=== PATIENT | male | born 1980 | race Caucasian/White ===

== ENCOUNTER 2017-03-09 14:32 | Emergency (ER) | payer OTHER ==
[2017-03-09 14:40] VITALS: BP 121/91; BMI 25.0
[2017-03-09] MEDS ORDERED: ROCEPHIN VIAL 1 GM IM ONE (15:05)
[2017-03-09] MEDS ORDERED: TORADOL 60 MG VIAL IM ONE (15:05)
[2017-03-09] MEDS ORDERED: BACTRIM DS TAB PO ONE ×2 (15:06→15:08)
[2017-03-09] MEDS ORDERED: TORADOL 60 MG VIAL ONE (15:08)
[2017-03-09] MEDS ORDERED: ROCEPHIN VIAL 1 GM ONE (15:08)
--- NOTE | 2017-03-09 15:09 | DR.GENAD ---
HPI - PCP Primary Care Physician: NFD - Complaint/Symptoms Chief Complaint Doctors Comments: Patient complains of an infection in his right arm for the past seven days getting worst. States he has been taking Amoxicillin for 4-5 days without any improvement. States he was here five months ago and received a tetanus shot at that time. He denies fever, chills, nausea or vomiting. 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 states the pain is 5 of 10. He denies chills or fever. Chief Complaint:: PT C/O INFECTED PLACE OF RT FOREARM. PT STATES HE IS BLIND AND HE DOESN';T KNOW IF SOMETHING STUCK IN HIS ARM OR IF HE WAS BITTEN BY SOMETHING. PT STATES IT HAS BEEN THERE A WEEK AND STARTED A LITTLE BUMP THAT HE COULD FEEL. THROUGHOUT THE PAST FEW DAYS PT STATES THE SWELLING HAS GOTTEN WORSE AND HE NOTICED FEVER ON THE SPOT - Nurses notes reviewed Nurses Notes Review: Yes - Source History Provided: Patient - Mode of Arrival Mode of Arrival: Ambulatory - Timing Onset of Chief Complaint: 03/02/17 Came on: Gradually - Duration Duration: Constant How lon Duration: Weeks - Location Location: right forearm with 3 cm nodule - Severity Severity: Moderate - Modifying Factors Worsens:: nothing Improves:: nothing PMH - PMH Past Medical History: Yes Past Medical History: Anxiety, Depression Past Medical History Comment: USHER SYNDROME Past Surgical History: No - Family History History of Family Medical Conditions: No - Social History Does patient currently use any type of tobacco product: Yes Have you used tobacco products in the last 12 months: Yes Type of Tobacco Use: Cigarettes Does any household member use tobacco: Yes Alcohol Use: None Do you use any recreational Drugs:: No Lives With: Alone Lives Where: Home - infectious screening In the last 2 months have you had wt loss of >10#?: NO Have you had fever, night sweats or hemotysis?: No Have you traveled outside the country in the last 6 months?: No Isolation: Standard ROS - Review of Systems Constitutional: No Symptoms Reported, See HPI, Fever, Weakness Eyes: No Symptoms Reported. negative: See HPI, Eye Pain, Blurred Vision, Tearing, Discharge, Photophobia, Diplopia, Other ENTM: No Symptoms Reported Respiratoy: No Symptoms Reported Cardiovascular: No Symptoms Reported Gastrointestinal/Abdominal: No Symptoms Reported Genitourinary: No Symptoms Reported Neurological: No Symptoms Reported Musculoskeletal: No Symptoms Reported, Right (3-4 erythemaatous firm lesion;no discharge), Arm Integumentary: No Symptoms Reported, Lesions. negative: See HPI, Change in Color, Change in Hair/Nails, Dryness, Lumps, Rash, Itching, Wound, Bruises, Juandice, Other Hematologic/Lymphatic: No Symptoms Reported. negative: See HPI, Anemia, Blood Clots, Easy Bleeding, Easy Bruising, Swollen Glands, Lymphadenopathy, Other Endocrine: No Symptoms Reported Psychiatric: No Symptoms Reported, See HPI. negative: Anxiety, Depression, Hallucinations, Excessive crying, Suicidal, Other PE - Vital Signs Vitals: Temperature 98.3 F Pulse Rate 92 Respiratory Rate 20 Blood Pressure 121/91 O2 Sat by Pulse Oximetry 100 - General Limitations: No Limitations General Appearance: Alert, In Distress (moderate) - Head Head Exam: Normal Inspection, Atraumatic, Normocephalic - Eyes Eye exam: Normal Appearance, PERRL, EOMI. negative: Scleral Icterus, Conjunctival Injection, Nystagmus, Miosis, Mydrasis, Periorbital Swelling, Periorbital Tenderness, Other - ENT ENT Exam: Normal Exam, Normal Oropharynx, Normal External Ear Exam, Mucous Membranes Moist, TM's Normal Bilaterally External Ear Exam: Normal External Inspection TM/Canal Exam: Bilateral Normal Nose Exam: Normal Nose Exam Mouth Exam: Normal Inspection. negative: Drooling, Trismus, Lip Swelling, Tongue Elevation, Tongue Swelling, Laceration, Other Throat Exam: Normal Inspection. negative: Tonsillar Erythema, Tonsillomegaly, Tonsillar Exudate, R Peritonsillar Mass, L Peritonsillar Mass, Muffled Voice, Other - Neck Neck Exam: Normal Inspection, Full ROM, Trachea Midline. negative: Tenderness, Meningismus, Lymphadenopathy, Thyromegaly, Other - Chest Chest Inspection: Normal Inspection, Symmetric Chest Wall Rise - Respiratory Respiratory Exam: Normal Lung Sounds Bilat Respiratory Exam: Bilateral Clear to Auscultation - Cardiovascular Cardiovascular Exam: Regular Rate, Normal Rhythm, Normal Heart Sounds - Abdominal Exam Abdominal Exam: Normal Inspection, Normal Bowel Sounds, Soft Abdominal Tenderness: negative: RUQ, RLQ, LUQ, LLQ, Epigastrium, Suprapubic, Diffuse, Mild, Moderate, Severe, Other - Extremities Extremities Exam: Normal Inspection, Full ROM, Normal Capillary Refill. negative: Tenderness, Edema, Joint Swelling, Calf Tenderness, Other - Back Back Exam: Normal Inspection, Full ROM. negative: Tenderness, (R) CVA Tenderness, (L) CVA Tenderness, Muscle Spasm, Paraspinal Tenderness, Vertebral Tenderness, Rashes, (R) Sciatic Notch Tenderness, (L) Sciatic Notch Tendern, (R ) Straight Leg Raise, (L) Straight Leg Raise, Other - Neurologic Neurological Exam: Alert, Oriented X3, CN II-XII Intact, Normal Gait, Reflexes Normal - Psychiatric Psychiatric Exam: Normal Affect, Normal Mood - Skin Skin Exam: Warm, Dry, Intact, Normal Color - Diagnosis Discharge Problem: Furuncle Cellulitis Qualifiers: Site of cellulitis of extremity: upper extremity Laterality: right - Discharge Plan Disposition: HOME, SELF-CARE Condition: Stable Prescriptions: Cephalexin [KEFLEX CAP 500 MG *] 500 mg PO QID #40 cap Ibuprofen [MOTRIN TAB 800 MG *] 800 mg PO BID PRN #60 tab PRN Reason: Pain/Inflammation Sulfamethoxazole-Trimethoprim [BACTRIM DS TAB 800/160 MG *] 1 tab PO BID #20 tab - Follow ups/Referrals Follow ups/Referrals: NFD,None [Primary Care Provider] - 3 days RADHA TRIPP [STAFF PHYSICIAN] - 3 days - Instructions Instructions: Cellulitis, MRSA Infection, Adult
== END 2017-03-09 16:15 | disposition home or self-care (01) ==
LOC: ER 14:45
DX: L03.113 Cellulitis of right upper limb (principal); L02.93 Carbuncle, unspecified
CPT/HCPCS: 96372; 99282; J0696; J1885